=== PATIENT | female | born 1980 | race African-American/Black ===

== ENCOUNTER 2019-11-08 07:16 | Emergency (ER) | payer OTHER ==
[~2019-11-08] VITALS: Ht 162.6 cm; Wt 71.2 kg
[2019-11-08] MEDS ORDERED: Acetaminophen 500mg (ES) tab ORAL ONE (07:45)
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
[2019-11-08 07:50] VITALS: BP 117/79
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
[2019-11-08 08:08] LABS: APPEARANCE,URINE CLEAR; BILIRUBIN, URINE NEGATIVE (NEGATIVE); COLOR,URINE PALE YELLOW; GLUCOSE, URINE (UA) NEGATIVE (NEGATIVE); KETONES,URINE NEGATIVE (NEGATIVE); LEUKOCYTE ESTERASE ,URINE NEGATIVE (NEGATIVE); NITRITE,URINE NEGATIVE (NEGATIVE); PH,URINE 5 (4.5-8.0); PROTEIN,URINE NEGATIVE (NEGATIVE); UROBILINOGEN,URINE NORMAL MG/DL (0.0-1.0)
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
--- NOTE | 2019-11-08 09:16 | NUR ---
ED Nurse Note: [employer] office [place] #[id number] here to terry pt. primary rn notified. pt home address and phone number given for [employer] follow up.
== END 2019-11-08 09:00 | disposition left against medical advice (07) ==
LOC: EMR 07:45
DX: R51 Headache (principal); T76.21XA Adult sexual abuse, suspected, initial encounter; Z88.0 Allergy status to penicillin
CPT/HCPCS: 80307; 81003; 81025; 99283